=== PATIENT | male | born 1970 | race Hispanic/Latino ===

== ENCOUNTER 2018-04-29 04:18 | Emergency (ER) | payer OTHER ==
[~2018-04-29] VITALS: Ht 177.8 cm; Wt 104.3 kg
[2018-04-29 04:26] VITALS: BP 160/91
[2018-04-29] MEDS ORDERED: ASPIRIN ONE (04:30)
--- NOTE | 2018-04-29 04:30 | PCM.EKG ---
[facility] Test Date: 2018-04-29 Test Time: 04:27:27 Pat Name: LEILANI EDWARDS Department: Room: Gender: M Block Hand: JENNIFER : 1970 Requested By: JASPER SAM Order Number: [id number] Reading MD: Measurements Intervals [place] Rate: 81 P: 50 AK: 126 QRS: 48 QRSD: 100 T: 95 QT: 402 QTc: 466 Interpretive Statements Sinus rhythm with occasional premature ventricular complexes Septal infarct, age undetermined T wave abnormality, consider lateral ischemia Abnormal ECG No previous ECG available for comparison Please click the below link to view image of tracing.
[2018-04-29] MEDS ORDERED: ASPI-484 PO (04:37)
[2018-04-29] MEDS ORDERED: CLOP75TA PO (04:37)
[2018-04-29] MEDS ORDERED: MELO7.5T31 PO (04:37)
[2018-04-29] MEDS ORDERED: LISI1TAB5 PO (04:37)
[2018-04-29] MEDS ORDERED: INDO50CA PO (04:37)
[2018-04-29] MEDS ORDERED: BEE580CA PO (04:37)
[2018-04-29] MEDS ORDERED: ROSU5TAB PO (04:37)
--- NOTE | 2018-04-29 04:39 | NUR ---
ANASTASIYA FLORES IN ROOM WITH PORTABLE AT THIS TIME.
[2018-04-29 04:43] LABS: BASOPHIL % 0.3 % (0.0-0.2); EOSINOPHIL # 0.3 10^3/uL (0.0-0.2); EOSINOPHIL % 2.5 % (0.0-5.0); HEMOGLOBIN 15.9 g/dL (13.9-16.3); LYMPHOCYTES # 3.1 10^3/uL (1.0-4.8); LYMPHOCYTES % 27.7 % (24.0-44.0); MEAN CELL HGB 29.6 pg (26-34); MEAN CELL HGB CONCENTRATION 34.1 g/dL (33-37); MEAN CORP VOLUME 86.8 fL (78-100); MEAN PLATELET VOLUME 10.6 fL (7.8-11.0); MONOCYTES % 8.6 % (5.0-12.0); NEUTROPHIL # 6.8 10^3/uL (1.8-7.7); NEUTROPHILS % 60.6 % (41.0-85.0); RED CELL DISTRIBUTION WIDTH 13.8 % (11.5-14.5); WHITE BLOOD CELL 11.2 10^3/uL (4.5-11.0)
--- NOTE | 2018-04-29 04:53 | ER.PDOC ---
General Chief Complaint: Chest Pain-Cardiac Nature Stated Complaint: CHEST PAIN Time seen by MD: 04:51 Source: patient Exam Limitations: no limitations History of Present Illness Initial Comments 47 yo M p/w multiple complaints. C/O central sharp chest pain X 1 hour, upon waking up. Denies associated dyspnea, states that the pain radiates to the left shoulder. No associated nausea/vomiting or diaphoresis, no active chest pain at present. Also c/o glabal AUGUSTIN and photophobia since waking up. Expresses concern due to a recent sick contact, a co-worker with viral meningitis. Denies neck stiffness. Radiation: shoulders (left) Prior CP/Workup: Cardiac Cath, Other (CABG) Nitro Today/Relief: No Nitro Taken Today Aspirin Today: 325 mg x 1, Provided By ED Associated Symptoms: headache Allergies: Coded Allergies: morphine (Unverified Allergy, Unknown, HALLUCINATIONS, 04/29/18) tramadol (Unverified Allergy, Unknown, HALLUCINATIONS, 04/29/18) Home Meds Reported Medications Meloxicam (MELOXICAM) 7.5 Mg Tablet, 7.5 MG PO BID, TABLET 04/29/18 Indomethacin (INDOMETHACIN) 50 Mg Capsule, 50 MG PO DAILY24, CAPSULE 04/29/18 Aspirin (ASPIR 81) 81 Mg Tablet.dr, 81 MG PO DAILY24 04/29/18 Rosuvastatin 5MG (CRESTOR 5MG) 5 Mg Tablet, 5 MG PO DAILY24, TAB 04/29/18 Bee Pollen (BEE POLLEN) 580 Mg Capsule, 550 MG PO DAILY24, CAPSULE 18 Clopidogrel Bisulfate (CLOPIDOGREL) 75 Mg Tablet, 75 MG PO DAILY24, TABLET 04/29/18 Lisinopril/Hydrochlorothiazide (LISINOPRIL-HCTZ 20-12.5 MG TAB) 1 Each Tablet, 1 EACH PO DAILY24, TABLET 04/29/18 Past Medical History Medical History: cardiac problems, GERD, high cholesterol, heart attack, hypertension Surgical History: cardiac cath, back, cholecystectomy, coronary bypass surgery Family History Significant Family History: diabetes, hypertension Social History Smoking: non-smoker Alcohol Use: occassionally Drug Use: marijuana Reviewed Nursing Reviewed: Vital Signs, Abn. Noted, Nursing Assessment Constitutional: no symptoms reported EENTM: no symptoms reported Respiratory: see HPI Cardiovascular: see HPI Genitourinary: see HPI Musculoskeletal: see HPI Psychiatric/Neurological: headache Endocrine: see HPI Hematologic/Lymphatic: see HPI All Other Systems: Reviewed and Negative Physical Exam General Appearance: No Apparent Distress, WD/WN HEENT: PERRL/EOMI, Normal ENT Inspection Neck: Non-Tender, Full Range of Motion, Supple, Normal Inspection Respiratory: chest non-tender, lungs clear, normal breath sounds, no respiratory distress, no accessory muscle use Cardiovascular: Normal Peripheral Pulses, Regular Rate, Rhythm, No Edema, No Gallop Gastrointestinal: Non Tender Extremities: Normal Range of Motion, Non-Tender, Normal Inspection, No Pedal Edema, No Calf Tenderness 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 NML as Tested, No Motor/Sensory Deficits, Alert, Normal Mood/Affect, Oriented x 3 Skin: Normal Color, Warm/Dry Results/Orders Results/Orders Administered Medications Medications (Trade) Dose Ordered Sig/Zeynep Route PRN Reason Start Time Stop Time Status Last Admin Dose Admin Aspirin (Aspirin) 325 mg DAILY PRN PO CHEST PAIN 04/29/18 05:00 05/29/18 04:59 04/29/18 04:39 [place] [address] DIAGNOSTIC IMAGING REPORT STATUS: Signed PATIENT NAME: LEILANI EDWARDS MR#: [id number] : 1970 LOCATION: ER ROOM#: BED: SEX: M AGE: 47 SERVICE DATE: 04/29/18417 ORDERING PHYSICIAN: JASPER SAM MD RAD#: [id number] ACCESSION NUMBER(s): [id number] PROCEDURE: XR CHEST 1V EXAM DATE: 04/29/18436 cc: C:\Program Files (x86)\[facility]; DHEERAJ OCASIO MD; JASPER SAM MD / CC: C:\Program Files (x86)\[facility]; DHEERAJ OCASIO MD; JASPER SAM MD PROCEDURE:CHEST X-RAY, AP PORTABLE COMPARISON:None. INDICATIONS:chest pain FINDINGS: LUNGS/PLEURA:No significant pulmonary parenchymal abnormalities. No effusions. VASCULATURE:Normal. Unremarkable pulmonary vasculature. CARDIAC:Median sternotomy wires and CABG markers are present. MEDIASTINUM:Normal. No visible mass or adenopathy. BONES:Moderate degenerative changes of both shoulders. OTHER:Negative. CONCLUSION: Evidence of prior CABG procedure. No acute abnormality is identified. Dictated by: Omid Ocasio MD on 04/29/2018 at 05:02 AM [facility] [place] [id number] DIAGNOSTIC IMAGING REPORT STATUS: Signed PATIENT NAME: LEILANI EDWARDS MR#: [id number] : 1970 LOCATION: ER ROOM#: BED: SEX: M AGE: 47 SERVICE DATE: 04/29/18417 ORDERING PHYSICIAN: JASPER SAM MD RAD#: [id number] ACCESSION NUMBER(s): [id number] PROCEDURE: CT HEAD WO CONTRAST EXAM DATE: 04/29/18510 cc: C:\Program Files (x86)\[facility]; DHEERAJ OCASIO MD; JASPER SAM MD / CC: C:\Program Files (x86)\[facility]; DHEERAJ OCASIO MD; JASPER SAM MD PROCEDURE:CT HEAD WITHOUT CONTRAST TECHNIQUE:Axial cuts were obtained through the head, without intravenous contrast material. The images were viewed at brain and bone settings. COMPARISON:None. INDICATIONS:severe headache, global, photophobia FINDINGS: VENTRICLES:There is no hydrocephalus. CEREBRUM:There is no CT evidence of mass, hemorrhage, or acute infarct. CEREBELLUM:Normal. BRAINSTEM:Normal. SKULL:Normal. SINUSES:Normal. OTHER:Negative. CONCLUSION:No acute abnormality is identified. 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 Normal neuro exam, no nuchal rigidity, low clinical concern for meningiits/encephalitis. ASA given, CT head pending, empiric treatment for migraine given. Dispo pending re-eval and lab/ imaging results. Patient resting comfortably in NAD, labs and imaging negative for any acute pathology, will d/c home with reassurance and PMD follow up. EKG/XRAY/CT/US EKG Comments: NSR at 81, occasional PVC, normal axis, INF ST depressions, no previous EKG Departure Time of Disposition: 06:02 Disposition: 01 HOME, SELF-CARE Impression: Primary Impression: Chest pain Additional Impression: Headache Condition: Stable Patient Instructions: Chest Pain (Nonspecific), General Headache Without Cause Referrals: PCP,UNKNOWN (PCP) PRIMARY CARE PROVIDER Additional Instructions: The results of your bloodwork and CT scan do not reveal a dangerous cause of your condition at this time. Follow up with both your primary care physician and your insurance analyst to be re-evaluated within 24-48 hours. Avoid heavy exertion until you are re-evaluated by the insurance analyst. Duration or Time Spent with Pa: 45 Problem Qualifiers JASPER SAM MD Apr 29, 2018 04:53
[2018-04-29] MEDS ORDERED: ASPIRIN PO PRN (05:00)
--- NOTE | 2018-04-29 05:04 | DIREP ---
PROCEDURE:CHEST X-RAY, AP PORTABLE COMPARISON:None. INDICATIONS:chest pain FINDINGS: LUNGS/PLEURA:No significant pulmonary parenchymal abnormalities. No effusions. VASCULATURE:Normal. Unremarkable pulmonary vasculature. CARDIAC:Median sternotomy wires and CABG markers are present. MEDIASTINUM:Normal. No visible mass or adenopathy. BONES:Moderate degenerative changes of both shoulders. OTHER:Negative. CONCLUSION: Evidence of prior CABG procedure. No acute abnormality is identified. Dictated by: Omid Donovan MD on 04/29/2018 at 05:02 AM
[2018-04-29] MEDS ORDERED: BENADRYL IV STA (05:06)
[2018-04-29] MEDS ORDERED: REGLAN IV STA (05:06)
[2018-04-29] MEDS ORDERED: TORADOL IV STA (05:06)
[2018-04-29] MEDS ORDERED: NS 1000ML 1,000 ML ONE (05:12)
[2018-04-29] MEDS ORDERED: BENADRYL ONE (05:12)
[2018-04-29] MEDS ORDERED: TORADOL ONE (05:13)
--- NOTE | 2018-04-29 05:18 | NUR ---
CT PT TO CT WITH DRE, RAD AT THIS TIME.
[2018-04-29 05:21] LABS: ALANINE AMINOTRANSFERASE(ML) 25 U/L (12-78); ALKALINE PHOSPHATASE 108 U/L (50-136); ASPARTATE AMINO TRANSFERASE 14 U/L (0-35); CALCIUM 8.6 mg/dL (8.4-10.5); CARBON DIOXIDE 25.2 mmol/L (20.0-32); GLUCOSE 169 mg/dL (70-110)
--- NOTE | 2018-04-29 05:25 | NUR ---
UPDATE PT BACK TO ROOM FROM CT AT THIS TIME.
[2018-04-29] MEDS ORDERED: NS 1000ML 1,000 ML IV ONE (05:30)
--- NOTE | 2018-04-29 05:44 | DIREP ---
PROCEDURE:CT HEAD WITHOUT CONTRAST TECHNIQUE:Axial cuts were obtained through the head, without intravenous contrast material. The images were viewed at brain and bone settings. COMPARISON:None. INDICATIONS:severe headache, global, photophobia FINDINGS: VENTRICLES:There is no hydrocephalus. CEREBRUM:There is no CT evidence of mass, hemorrhage, or acute infarct. CEREBELLUM:Normal. BRAINSTEM:Normal. SKULL:Normal. SINUSES:Normal. OTHER:Negative. CONCLUSION:No acute abnormality is identified. Dictated by: Omid Donovan MD on 04/29/2018 at 05:42 AM
--- NOTE | 2018-04-29 05:55 | NUR ---
PT UPDATE PT RESTING WITH EYES CLOSED IN BED WITH LIGHTS OFF AT THIS TIME.
[2018-04-29 06:18] VITALS: BP 160/91
== END 2018-04-29 06:17 | disposition home or self-care (01) ==
LOC: ER 04:18
DX: R07.9 Chest pain, unspecified (principal); R51 Headache; F12.10 Cannabis abuse, uncomplicated; I10 Essential (primary) hypertension; E11.9 Type 2 diabetes mellitus without complications; K21.9 Gastro-esophageal reflux disease without esophagitis; E78.00 Pure hypercholesterolemia, unspecified; Z88.8 Allergy status to other drugs, medicaments and biological substances; Z79.899 Other long term (current) drug therapy
CPT/HCPCS: 36415; 70450; 71045; 80053; 82550; 82553; 83880; 84484; 85025; 85610; 85730; 93005; 96374; 96375; 99285; J1200; J1885; J7030